=== PATIENT | male | born 1960 | race Two or more races ===

== ENCOUNTER 2018-09-12 15:00 | Emergency (ER) | payer SELFPAY ==
[~2018-09-12] VITALS: Ht 172.7 cm; Wt 63.0 kg
[2018-09-12 15:17] VITALS: BP 127/76
--- NOTE | 2018-09-12 15:31 | NUR ---
PT AMBULATORY TO ROOM 15 W/ C/O L HAND PAIN, SWELLING AFTER PT FELL AND CAUGHT HIMSELF W/ HIS L HAND. PT STATES THIS HAPPENED 6 DAYS AGO. PT RESTING ON GURNEY. STATES NO PAIN TO INDEX FINGER AND THUMB. PT RESTING ON GURNEY. NADN. XR TECH AT BEDSIDE.
--- NOTE | 2018-09-12 16:21 | NUR ---
ADELE SOLIZ TECH AT BEDSIDE PLACING SPLINT
== END 2018-09-12 16:45 | disposition home or self-care (01) ==
LOC: ED 16:10
DX: S52.592A Other fractures of lower end of left radius, initial encounter for closed fracture (principal); F17.210 Nicotine dependence, cigarettes, uncomplicated; W01.0XXA Fall on same level from slipping, tripping and stumbling without subsequent striking against object, initial encounter; Y93.89 Activity, other specified; Y92.89 Other specified places as the place of occurrence of the external cause; Y99.8 Other external cause status
CPT/HCPCS: 29125; 99283

== ENCOUNTER 2018-09-15 11:59 | Emergency (ER) | payer SELFPAY ==
[~2018-09-15] VITALS: Ht 172.7 cm; Wt 63.4 kg
[2018-09-15 12:02] VITALS: BP 119/79
== END 2018-09-15 16:17 | disposition home or self-care (01) ==
LOC: ED 16:10
DX: S52.572A Other intraarticular fracture of lower end of left radius, initial encounter for closed fracture (principal); X58.XXXA Exposure to other specified factors, initial encounter; Y93.89 Activity, other specified; Y92.89 Other specified places as the place of occurrence of the external cause; Y99.8 Other external cause status
CPT/HCPCS: 29125; 99283